=== PATIENT | male | born 1965 | race Caucasian/White ===

== ENCOUNTER 2018-02-17 13:06 | Emergency (ER) | payer OTHER ==
[~2018-02-17] VITALS: Ht 172.7 cm; Wt 84.1 kg
[2018-02-17] MEDS: KETOROLAC TROMETHAMINE 60 MG/2 ML VIAL IM ONE (14:24)
[2018-02-17] MEDS: CYCLOBENZAPRINE HCL 10 MG TABLET PO ONE (14:25)
[2018-02-17 14:59] VITALS: BP 125/75
== END 2018-02-17 15:03 | disposition home or self-care (01) ==
LOC: EMS 13:08
DX: S39.012A Strain of muscle, fascia and tendon of lower back, initial encounter (principal); Z90.89 Acquired absence of other organs; Z98.890 Other specified postprocedural states; X50.1XXA Overexertion from prolonged static or awkward postures, initial encounter; Y93.89 Activity, other specified; Y92.89 Other specified places as the place of occurrence of the external cause; Y99.8 Other external cause status
CPT/HCPCS: 96372; 99283; J1885

== ENCOUNTER 2018-10-13 19:28 | Emergency (ER) | payer OTHER ==
[~2018-10-13] VITALS: Ht 170.2 cm; Wt 83.6 kg
[2018-10-13] MEDS ORDERED: FLUORESCEIN SODIUM 1 MG STRIP ONE (21:52)
[2018-10-13] MEDS ORDERED: PROPARACAINE HCL 0.5% 15 ML OPHTHALMIC SOLUTION OU ONE (22:00)
[2018-10-13 22:01] VITALS: BP 140/80
== END 2018-10-13 22:47 | disposition home or self-care (01) ==
LOC: EMS 19:29
DX: S05.02XA Injury of conjunctiva and corneal abrasion without foreign body, left eye, initial encounter (principal); S05.01XA Injury of conjunctiva and corneal abrasion without foreign body, right eye, initial encounter; X58.XXXA Exposure to other specified factors, initial encounter; Y93.89 Activity, other specified; Y92.89 Other specified places as the place of occurrence of the external cause; Y99.0 Civilian activity done for income or pay